=== PATIENT | male | born 1970 | race Caucasian/White ===

== ENCOUNTER → 2019-10-17 | Outpatient (CLI) | payer BC ==
--- NOTE | 2019-10-17 15:14 | REP ---
MRI CERVICAL SPINE WITHOUT CONTRAST: HISTORY: Other spondylosis in the cervical region. Question myelomalacia. No comparison cervical spine imaging. TECHNIQUE: Sagittal and axial T1- and T2-weighted scans are acquired in the usual fashion with and without fat saturation. Sequences include spin echo, turbo spin-echo, and STIR imaging sequences. MRI FINDINGS: There is straightening of the normal cervical lordosis. Cervical vertebral body heights are preserved. No bony destructive lesion is seen. Axial and sagittal images at C2-3 show no abnormality. C3-C4, there is mild degenerative disc narrowing and disc bulging. There is right-sided uncovertebral spurring producing right-sided neural foraminal narrowing at the C3-4 level. At C4-C5, there is a somewhat angular moderate-sized right paracentral focal disc protrusion which is associated with mild spinal cord compression due to developmentally narrow canal and the disc protrusion. The disc indents the ventral margin of the thecal sac. There is mild central canal stenosis at C4-5. Mild right-sided uncovertebral spurring is present. No cord lesion is seen at the C4-5 level. At C5-C6, there is a broad-based right posterior disc bulge with associated posterior osteophytic ridging. This flattens the ventral margin of the cord and causes mild to moderate cord compression as well. There is central canal stenosis at this level. There is significant right-sided neural foraminal narrowing at C5-6. This is due to uncovertebral spurring and disc bulging. Midline AP dimension of the thecal sac at C5-6 is only 5.6 mm. Cord signal intensity is normal and C5-6. At C6-7, there is a large caudally extruded disc herniation on the left side of midline compressing the thecal sac and spinal cord. This measures 7 mm in anteroposterior dimension x 11 mm right to left x 12 mm craniocaudal. There is significant cord compression and there is a diffuse pattern of abnormal edematous T2 hyperintense signal within this cervical spinal cord from the C6-7 disc caudally to the C7-T1 disc consistent with myelomalacia. At C7-T1, there is no evidence of disc protrusion. No foraminal narrowing is seen. IMPRESSION: Multilevel spinal stenosis. There are disc protrusions at C4-5, C5-6, and C6-7 with varying degrees of cord compression at each of these levels, most pronounced at C6-7 where there is a large caudally extruded disc herniation on the left and where there is significant cord compression and a fairly large myelomalacia lesion is seen in the cord at this level on T2-weighted scans. Multilevel neural foraminal narrowing as above predominantly right-sided. Electronically Signed by Juan White MD 10/17/2019 04:15 P
--- NOTE | 2019-10-18 07:11 | REP ---
MRI SACRUM AND COCCYX, PELVIC MRI WITHOUT CONTRAST: HISTORY: Lumbosacral radiculopathy. Rule out sacral plexus lesion. No comparison imaging is available. TECHNIQUE: Sagittal, axial, and oblique coronal images are obtained through the sacrum and coccyx. T1- and T2-weighted scans were included with and without fat saturation. MRI FINDINGS: The prostate and seminal vesicles are unremarkable. Urinary bladder is intact as visualized. Cortical and medullary bone signal intensity is normal in the sacrum and coccyx. Presacral space shows normal homogeneous fatty tissue. No presacral or retro sacral mass or abnormal fluid collection is seen. No rectal or perianal abnormality is appreciated. SI joints are unremarkable and T1- and T2-weighted scans without evidence to suggest sacroiliac this. IMPRESSION: No significant abnormality. Electronically Signed by Juan White MD 10/18/2019 09:10 A
--- NOTE | 2019-10-18 07:17 | REP ---
MRI THORACIC SPINE WITHOUT CONTRAST: HISTORY: Radiculopathy. TECHNIQUE: Sagittal and axial T1- and T2-weighted scans are acquired in the usual fashion with and without fat saturation. Sequences include spin echo, turbo spin-echo, and STIR imaging sequences. MRI FINDINGS: There is a small hemangioma in the right side of the T12 vertebral body. Cortical and medullary bone signal intensity are otherwise normal. No bony destructive lesion is seen. The disc herniation described in the cervical spine MRI study at the C6-C7 is seen at the top of the imaging field of view along with a myelomalacia lesion extending down to the level of the C7-T1 disc. No other cord compressive lesion is seen. No neural foraminal narrowing is seen. No significant thoracic disc protrusion is observed. No paravertebral mass or other lesion is seen. IMPRESSION: Minimal degenerative disc disease changes at T8-9 and T9-10. Myelomalacia at C6- C7 related to a disc herniation at this level. No other cord compressive lesion seen. Electronically Signed by Juan White MD 10/18/2019 09:10 A
== END ==
LOC: M RAD 12:44
PROVIDERS: ATTEND Physical Medicine & Rehabilitation
DX: M54.14 Radiculopathy, thoracic region (principal); M47.892 Other spondylosis, cervical region; M51.34 Other intervertebral disc degeneration, thoracic region

== ENCOUNTER → 2023-10-08 | Outpatient (REF) | LOC: M RAD 11:14 | PROVIDERS: ATTEND Internal Medicine | DX: M54.50 Low back pain, unspecified (principal); M47.812 Spondylosis without myelopathy or radiculopathy, cervical region; M43.22 Fusion of spine, cervical region; M41.86 Other forms of scoliosis, lumbar region ==